=== PATIENT | female | born 1980 | race Hispanic/Latino ===

== ENCOUNTER 2018-04-09 20:25 | Emergency (ER) | payer OTHER ==
[2018-04-09 21:23] VITALS: BMI 22.7
--- NOTE | 2018-04-09 21:47 | OBHP ---
Datetime: 04/09/2018 21:28 IP Adm Impression: , intrauterine ; No Active Labor; Intact Membranes IP Admit Plan: Observation/Evaluation Admit Comment, IP Provider: 37 yo female G1 with an IUP at 36 weeks and presented with c/o of onset of sharp Left upper quadrant pain about 2 hrs ago and lasting about 30 minutes and then ressolved spo ntaneously. further states that she want it to come to make sure baby is fine. Pt was seen at her OB today and diagnosed with UTI and started on Keflex BID. today. Admits to adequate FM and denies LOF, VB or any pains. Also Deies any N, V, upset stomach, fever or chills. PMHx Negative PSHx Tonsillectomy Meds PNV and Keflex NKDA Social Hx Denies x 3 Assessment and Plan: Primigravida with 36 weeks IUP Presently on treatment for UTI Drinks little water S/P Sharp Left UQ pain/Spontanoeous ressolved NST reactive Irregular [place] Eric contractions with closed cervic Reassured and advised to increase po water intake with some Cranberry juice Advised to complete Antibiotic as indicated and probably pelvic pain for now Will f/up with her OB doctor on next scheduled appointment or prior if needed Pelvic Type - PN: Adequate Extremities - PN: Normal Abdomen - PN: Normal Back - PN: Normal Breast - PN: Not Done Lungs - PN: Normal Heart - PN: Normal Thyroid - PN: Normal Neurologic - PN: Normal HEENT - PN: Normal General - PN: Normal Presentation-Admit: Vertex FHR - Baseline A Provider: 130 Membranes, Provider: Intact Contraction Comments Provider: Irregular Comments, ACOG Physical Exam: NO CVA tenderness bilaterally Gestation - Est Wks by US: 36.0 IP Hx Assessment: PNC recors reviewed and uneventful EGA AdmitDate IP: 36.0 Vital Signs Provider: Reviewed; Within Normal Limits IP Chief Complaint: Signs/symptoms UTI; Maternal discomfort; evaluation NICHD Variability Prov Fetus A: Moderate 6-25bpm NICHD Accel Fetus A IP Provider: 10X10 NICHD Decel Fetus A IP Provider: None Dilatation, Provider: 0 Effacement, Provider: 0 Station, Provider: floating Genitourinary Exam: Normal DTRs - PN: Normal
--- NOTE | 2018-04-09 21:49 | OBDCSUM ---
Datetime: 04/09/2018 21:45 Discharged to, Provider: Home Follow up at, Provider: Her [facility] Disch Instr Activity: Normal activity Disch Instr Diet: Regular Discharge Instructions, Provider: Routine instructions given Discharge Time: 04/09/2018 22:00 Follow up in weeks, Provider: scheduled appointment Contraception discussed, Prov: No Disch Activity Restrictions: No exercising; No lifting; Minimize walking; Minimize stair-climbing; N o sexual activity; Nothing in vagina - [place], tampons, douche Discharge Comment, Provider: 37 yo female G1 with an IUP at 36 weeks and presented with c/o of onset of sharp Left upper quadrant pain about 2 hrs ago and lasting about 30 minutes and then ressolved sp ontaneously. further states that she want it to come to make sure baby is fine. Pt was seen at her OB today and diagnosed with UTI and started on Keflex BID. today. Admits to adequate FM and denies LOF, VB or any pains. Also Deies any N, V, upset stomach, fever or chills. PMHx Negative PSHx Tonsillectomy Meds PNV and Keflex NKDA Social Hx Denies x 3 Assessment and Plan: Primigravida with 36 weeks IUP Presently on treatment for UTI Drinks little water S/P Sharp Left UQ pain/Spontanoeous ressolved NST reactive Irregular [place] Eric contractions with closed cervic Reassured and advised to increase po water intake with some Cranberry juice Advised to complete Antibiotic as indicated and probably pelvic pain for now Will f/up with her OB doctor on next scheduled appointment or prior if needed D/C home in stable and Satisfactory condition Discharge Diagnosis Prov Other: UTI and on medication Irregular contractions/[place] Eric S/P LUQ pain Datetime: 04/09/2018 21:26 Discharged to, Provider: Home Follow up at, Provider: DR MELTON Disch Instr Activity: Normal activity; Bedrest Disch Instr Diet: Regular Discharge Time: 04/09/2018 21:27 Follow up in weeks, Provider: 04/16/18 Disch Referrals: None
[2018-04-10 02:09] VITALS: BP 109/71; PULSE 87; RESP 20; TEMP 98
== END 2018-04-09 22:06 | disposition home or self-care (01) ==
LOC: C.EROB 20:25
DX: O47.03 False labor before 37 completed weeks of gestation, third trimester (principal); O23.43 Unspecified infection of urinary tract in pregnancy, third trimester; R10.12 Left upper quadrant pain; Z3A.36 36 weeks gestation of pregnancy